=== PATIENT | female | born 1990 ===

== ENCOUNTER 2019-11-14 07:10 | Emergency (ER) | payer BC ==
[2019-11-14 07:25] VITALS: BP 123/78
--- NOTE | 2019-11-14 07:39 | UC ---
UC General HPI - HPI Summary HPI Summary: Sore throat started yesterday morning No congestion or runny nose No cough No fever No sick contacts Works as RN at [employer] No N/V/D Appetite is ok - History of Current Complaint Chief Complaint: UCGeneralIllness Stated Complaint: SORE THROAT Time Seen by Provider: 11/14/19 07:14 Pain Intensity: 3 - Allergy/Home Medications Allergies/Adverse Reactions: Allergies Allergy/AdvReac Type Severity Reaction Status Date / Time seasonal Allergy Congestion Uncoded 11/14/19 07:26 Home Medications: Home Medications Norethindrone-E.estradiol-Iron [Microgestin Fe 1-20 mg-Mcg] 1 tab PO DAILY 11/13 [History Confirmed 11/14/19] PMH/Surg Hx/FS Hx/Imm Hx Previously Healthy: Yes - Surgical History Surgical History: Yes Surgery Procedure, Year, and Place: left ankle-compound fx - Social History Alcohol Use: Occasionally Substance Use Type: None Smoking Status (MU): Never Smoked Tobacco Review of Systems All Other Systems Reviewed And Are Negative: Yes ENT: Positive: Sore Throat Physical Exam Triage Information Reviewed: Yes Appearance: Well-Appearing Vital Signs: Initial Vital Signs Temp 97.9 F 11/14/19 07:20 Pulse 96 11/14/19 07:20 Resp 18 11/14/19 07:20 BP 123/78 11/14/19 07:20 Pulse Ox 99 11/14/19 07:20 Vital Signs Reviewed: Yes ENT: Positive: Pharyngeal erythema Neck: Positive: Supple, Nontender Respiratory: Positive: Lungs clear, Normal breath sounds Cardiovascular: Positive: RRR, No Murmur Course/Dx - Course Course Of Treatment: This is a 29 yr old with a sore throat Needs clearance before returning to work. Throat feels better today Rapid strep: negative Plan Your strep test was negative Recommend rest, fluids and ibuprofen as needed for pain If your symptoms persist or worsen, recommend follow up with PCP or return to urgent care - Diagnoses Provider Diagnosis: Pharyngitis Discharge ED - Sign-Out/Discharge Documenting (check all that apply): Patient Departure All imaging exams completed and their final reports reviewed: No Studies - Discharge Plan Condition: Fair Disposition: HOME Patient Education Materials: Pharyngitis (ED) Referrals: [facility] [Outside] No Primary Care Phys,NOPCP [Primary Care Provider] - Additional Instructions: Your strep test was negative Recommend rest, fluids and ibuprofen as needed for pain If your symptoms persist or worsen, recommend follow up with PCP or return to urgent care - Billing Disposition and Condition Condition: FAIR Disposition: Home
== END 2019-11-14 07:55 | disposition home or self-care (01) ==
LOC: UCCORT 07:10
DX: J02.9 Acute pharyngitis, unspecified (principal)
CPT/HCPCS: 87651; 99211; G0463